=== PATIENT | male | born 1955 | race Caucasian/White ===

== ENCOUNTER → 2024-01-21 13:04 | Outpatient (REF) | payer MEDICARE, SELFPAY | LOC: HWRAD 13:04 | PROVIDERS: ATTENDING PHYSICIAN Family Medicine | DX: R06.09 Other forms of dyspnea (principal) | CPT/HCPCS: 71046 ==

== ENCOUNTER → 2024-06-14 14:34 | Outpatient (REF) | payer MEDICARE, SELFPAY | LOC: HWRAD 14:34 | PROVIDERS: ATTENDING PHYSICIAN Otolaryngology; FAMILY PHYSICIAN Family Medicine | DX: E04.0 Nontoxic diffuse goiter (principal) | CPT/HCPCS: 76536 ==

== ENCOUNTER → 2025-06-07 15:26 | Outpatient (REF) | payer OTHER, SELFPAY | LOC: HWRAD 15:26 | PROVIDERS: ATTENDING PHYSICIAN Otolaryngology; FAMILY PHYSICIAN Family Medicine | DX: E04.0 Nontoxic diffuse goiter (principal) | CPT/HCPCS: 76536 ==

== ENCOUNTER → 2025-08-16 07:57 | Outpatient (REF) | payer OTHER, SELFPAY | LOC: HWRAD 07:57 | PROVIDERS: ATTENDING PHYSICIAN Family Medicine | DX: K76.9 Liver disease, unspecified (principal) | CPT/HCPCS: 76700 ==